=== PATIENT | female | born 1980 | race Caucasian/White ===

== ENCOUNTER 2016-06-24 09:27 | Emergency (ER) | payer BC ==
[2016-06-24 10:14] VITALS: BP 129/85
[2016-06-24] MEDS ORDERED: Fluorescein Sodium TOPICAL* 1 MG TEST ONE (10:17)
[2016-06-24] MEDS ORDERED: Eye Irrigation Solution 30 ML BOTTLE ONE (10:18)
[2016-06-24] MEDS ORDERED: Tetracaine 0.5% OPTH.SOL 4 ML* 1 DROP BTL ONE (10:18)
--- NOTE | 2016-06-24 10:30 | UC ---
Eye Complaint HPI - HPI Summary HPI Summary: pt presents with c/o sudden onset of left eye pain. Denies injury or change in vision. Does have concern for FB thinks she " may have an eye lash" in her eye. - History of Current Complaint Chief Complaint: UCEye Stated Complaint: EYE COMPLAINT Time Seen by Provider: 06/24/16 10:14 Hx Obtained From: Patient Hx Last Menstrual Period: IUD in place ?: No Onset/Duration: Sudden Onset, Lasting Hours Timing: Constant Severity Initially: Mild Severity Currently: Mild Character: Foreign Body Sensation Aggravating Factor(s): Blinking Alleviating Factor(s): Darkness Associated Signs And Symptoms: Positive: Photophobia, Drainage (Clear) - Risk Factors Penetrating Injury Risk Factor: Negative Globe Rupture Risk Factors: Negative Acute Glaucoma Risk Factors: Negative Optic Artery Occlusion Risk Factors: Negative - Allergies/Home Medications Allergies/Adverse Reactions: Allergies Allergy/AdvReac Type Severity Reaction Status Date / Time No Known Allergies Allergy Verified 06/24/16 10:14 PMH/Surg Hx/FS Hx/Imm Hx Previously Healthy: Yes Endocrine History Of: Denies: Diabetes, Thyroid Disease Cardiovascular History Of: Denies: Cardiac Disorders Respiratory History Of: Denies: Asthma - Surgical History Surgical History: Yes Surgery Procedure, Year, and Place: umbilical hernia repair 2011. gallbladder - Family History Known Family History: Positive: Other - positive [facility] for URI - Social History Lives: With Family Alcohol Use: None Substance Use Type: None Smoking Status (MU): Never Smoked Tobacco Review of Systems Constitutional: Negative Skin: Negative Eyes: Drainage - clear, Other - FB sensation ENT: Negative Respiratory: Negative Cardiovascular: Negative Gastrointestinal: Negative Genitourinary: Negative Motor: Negative, Decreased ROM Musculoskeletal: Negative Neurological: Negative Psychological: Negative All Other Systems Reviewed And Are Negative: Yes Physical Exam Triage Information Reviewed: Yes Appearance: Well-Appearing Vital Signs: Initial Vital Signs Temp 96.6 F 06/24/16 10:11 Pulse 97 06/24/16 10:11 Resp 16 06/24/16 10:11 BP 129/85 06/24/16 10:11 Pulse Ox 100 06/24/16 10:11 Vital Signs Reviewed: Yes Eye Exam: Normal ENT Exam: Normal Respiratory Exam: Other Respiratory: Positive: No respiratory distress Musculoskeletal Exam: Normal Neurological Exam: Normal Psychological Exam: Normal Skin Exam: Normal Eye Complaint Course/Dx - Course Course Of Treatment: No corneal abrasion appreciated with fluorscein staining or FB. I irrigated the lef venessa with copious amounts of eye stream. Pt stated that her eye "felt better" - Differential Dx/Diagnosis Differential Diagnosis/HQI/PQRI: Corneal Abrasion, Foreign Body Provider Diagnoses: eye pain Discharge - Discharge Plan Condition: Stable Disposition: HOME Patient Education Materials: Eye Pain (ED) Referrals: Jaquelin Sorenson MD [Primary Care Provider] - Abdias Owens MD [Medical Doctor] - Additional Instructions: Please follow up with your PCP or return to clinic as needed. Please follow up with an eye care provider. We have provided a name of a [facility] associated eye care provider for your reference.
== END 2016-06-24 10:39 | disposition home or self-care (01) ==
LOC: UCCORT 09:27
DX: H57.12 Ocular pain, left eye (principal); Z90.49 Acquired absence of other specified parts of digestive tract
CPT/HCPCS: 99212; A9270-GY; G0463

== ENCOUNTER 2017-01-23 19:20 | Emergency (ER) | payer BC ==
[2017-01-23 19:37] VITALS: BP 145/90
--- NOTE | 2017-01-23 19:44 | UC ---
Complaint Female HPI - HPI Summary HPI Summary: UTI sx started today with urgency, frequency and dysuria. - History Of Current Complaint Chief Complaint: UCGU Stated Complaint: URINARY Time Seen by Provider: 01/23/17 19:38 Hx Obtained From: Patient Hx Last Menstrual Period: Mirena ?: No Onset/Duration: Sudden Onset, Lasting Hours - 4, Worse Since - onset Severity Initially: Mild Severity Currently: Severe Character: Burning Aggravating Factor(s): Urination Associated Signs And Symptoms: Negative: Fever, Back Pain, Vaginal Bleeding/ Discharge - Risk Factors Ectopic Risk Factor: Maternal Age ^ 30, IUD Use Ovarian Torsion Risk Factor: Reproductive Age - Allergies/Home Medications Allergies/Adverse Reactions: Allergies Allergy/AdvReac Type Severity Reaction Status Date / Time No Known Allergies Allergy Verified 06/24/16 10:14 Home Medications: Home Medications buPROPion SR TAB* [Wellbutrin SR TAB*] 100 mg PO DAILY 01/23/17 [History Confirmed 01/23/17] PMH/Surg Hx/FS Hx/Imm Hx Previously Healthy: Yes - Surgical History Surgical History: Yes Surgery Procedure, Year, and Place: umbilical hernia repair 2011. gallbladder - Family History Known Family History: Positive: Cardiac Disease, Hypertension, Diabetes, Other - positive [facility] for URI - Social History Occupation: Employed Full-time Lives: With Family Alcohol Use: None Substance Use Type: None Smoking Status (MU): Never Smoked Tobacco Have You Smoked in the Last Year: No Review of Systems Gastrointestinal: Abdominal Pain - suprapubic Genitourinary: Dysuria, Frequency, Urgency Is Patient Immunocompromised?: No All Other Systems Reviewed And Are Negative: Yes Physical Exam Triage Information Reviewed: Yes Appearance: Well-Appearing, Pain Distress - mild with urinary symptoms, Obese Vital Signs: Initial Vital Signs Temp 98.3 F 01/23/17 19:31 Pulse 104 01/23/17 19:31 Resp 16 01/23/17 19:31 BP 145/90 01/23/17 19:31 Vital Signs Reviewed: Yes Eyes: Positive: Conjunctiva Clear Neck exam: Normal Respiratory Exam: Normal Cardiovascular Exam: Normal Abdomen Description: Negative: Nontender - tender suprapubic, CVA Tenderness (R) , CVA Tenderness (L) Musculoskeletal Exam: Normal Neurological Exam: Normal Psychological Exam: Normal Skin Exam: Normal Complaint Female Dx - Differential Dx/Diagnosis Differential Diagnosis/HQI/PQRI: Appendicitis, Ovarian Torsion, Urinary Tract Infection Provider Diagnoses: Acute cystitis Discharge - Discharge Plan Condition: Stable Disposition: HOME Prescriptions: Phenazopyridine 200 mg (NF) [Pyridium 200 MG tab *] 200 mg PO TID PRN #6 tab PRN Reason: UTI symptoms Sulfamethox/Trimethoprim DS* [Bactrim DS 800/160 TAB*] 1 tab PO BID #10 tab Patient Education Materials: Urinary Tract Infection in Women (ED), Phenazopyridine (By mouth), Sulfamethoxazole/Trimethoprim (By mouth)
[2017-01-23] MEDS ORDERED: Phenazopyridine TAB* 100 MG PO ONE (19:50)
[2017-01-23] MEDS ORDERED: Sulfamethox/Trimethoprim DS 800/160* TAB PO ONE (19:50)
== END 2017-01-23 20:10 | disposition home or self-care (01) ==
LOC: UCCORT 19:20
DX: N30.00 Acute cystitis without hematuria (principal)
CPT/HCPCS: 81003; 87077; 87086; 87186; 99212; A9270-GY; G0463

== ENCOUNTER 2018-10-07 18:47 | Emergency (ER) | payer BC | END 2018-10-07 20:09 | disposition left against medical advice (07) | LOC: UCCORT 18:47 | DX: B02.9 Zoster without complications (principal); Z53.21 Procedure and treatment not carried out due to patient leaving prior to being seen by health care provider ==

== ENCOUNTER 2018-10-07 20:01 | Emergency (ER) | payer BC ==
[2018-10-07 20:55] VITALS: BP 144/93
[2018-10-07] MEDS ORDERED: Ketorolac INJ* 30 MG/ML 1 ML VIAL IM ONE (21:05)
[2018-10-07] MEDS ORDERED: traMADol TAB* 50 MG PO ONE (21:06)
[2018-10-07] MEDS ORDERED: Acyclovir* 200 MG CAP PO ONE (21:07)
--- NOTE | 2018-10-07 21:08 | UC ---
Skin Complaint HPI - HPI Summary HPI Summary: 38 yo female with severely painful rash right shoulder x 3-4 days pain radiated down arm last dose of motrin 9 hours ago - History of Current Complaint Chief Complaint: UCRash Time Seen by Provider: 10/07/18 20:57 Stated Complaint: RIGHT SHOULDER POSS SHINGLES Hx Obtained From: Patient Hx Last Menstrual Period: 10/07/18 Onset/Duration: Gradual Onset, Lasting Days Timing: Constant Onset Severity: Mild Current Severity: Severe Pain Intensity: 9 Pain Scale Used: 0-10 Numeric Location: Other - right shoulder Character: Pain, Raised, Painful Aggravating Factor(s): Touch - Allergy/Home Medications Allergies/Adverse Reactions: Allergies Allergy/AdvReac Type Severity Reaction Status Date / Time No Known Allergies Allergy Verified 10/07/18 20:55 PMH/Surg Hx/FS Hx/Imm Hx Previously Healthy: Yes - Surgical History Surgical History: Yes Surgery Procedure, Year, and Place: umbilical hernia repair 2011. gallbladder - Family History Known Family History: Positive: Cardiac Disease, Hypertension, Diabetes, Other - positive [facility] for URI - Social History Alcohol Use: Rare Substance Use Type: None Smoking Status (MU): Never Smoked Tobacco Have You Smoked in the Last Year: No Review of Systems All Other Systems Reviewed And Are Negative: Yes Constitutional: Positive: Negative Skin: Positive: Rash Eyes: Positive: Negative ENT: Positive: Negative Respiratory: Positive: Negative Cardiovascular: Positive: Negative Gastrointestinal: Positive: Negative Genitourinary: Positive: Negative Motor: Positive: Negative Neurovascular: Positive: Negative Musculoskeletal: Positive: Negative Neurological: Positive: Negative Psychological: Positive: Negative Physical Exam Triage Information Reviewed: Yes Appearance: Well-Appearing, Well-Nourished, Pain Distress Vital Signs: Initial Vital Signs Temp 99 F 10/07/18 20:51 Pulse 96 10/07/18 20:51 Resp 15 10/07/18 20:51 BP 144/93 10/07/18 20:51 Pulse Ox 100 10/07/18 20:51 Eyes: Positive: Conjunctiva Clear ENT: Positive: Hearing grossly normal. Negative: Nasal congestion, Nasal drainage, Tonsillar swelling, Tonsillar exudate Neck: Positive: Supple, Nontender Respiratory: Positive: Lungs clear, Normal breath sounds, No respiratory distress Cardiovascular: Positive: RRR, No Murmur Musculoskeletal: Positive: ROM Intact, No Edema Neurological: Positive: Alert Psychological Exam: Normal Skin Exam: Other - see image Images Front/Back of Body, Lg ([place]): 1 - vesicular rash Course/Dx - Diagnoses Provider Diagnosis: Herpes zoster, Elevated BP without diagnosis of hypertension Discharge - Sign-Out/Discharge Documenting (check all that apply): Patient Departure All imaging exams completed and their final reports reviewed: No Studies - Discharge Plan Condition: Stable Disposition: HOME Prescriptions: Famciclovir(NF) [Famvir(NF)] 500 mg PO TID #21 tab Naproxen [Naproxen 500 mg tab] 500 mg PO BID PRN #30 tablet PRN Reason: Pain traMADol TAB* [Ultram*] 50 mg PO Q6HR PRN #20 tab MDD 4 PRN Reason: Pain Patient Education Materials: Shingles (ED) Forms: *Work Release Referrals: No Primary Care PhysNOPCP [Primary Care Provider] - Additional Instructions: see your MD in about 5 days keep rash covered at work - Billing Disposition and Condition Condition: STABLE Disposition: Home
== END 2018-10-07 21:43 | disposition home or self-care (01) ==
LOC: UCCORT 20:01
DX: B02.9 Zoster without complications (principal); R03.0 Elevated blood-pressure reading, without diagnosis of hypertension
CPT/HCPCS: 96372; 99212; A9270-GY; G0463; J1885